=== PATIENT | male | born 2005 | race Caucasian/White ===

== ENCOUNTER 2024-11-05 18:39 | Emergency (ER) | payer BC, MEDICAID | END 2024-11-05 20:40 | disposition home or self-care (01) | LOC: VM.ED 18:39 | DX: S40.021A Contusion of right upper arm, initial encounter (principal); Z91.048 Other nonmedicinal substance allergy status; W00.0XXA Fall on same level due to ice and snow, initial encounter | CPT/HCPCS: 73030-RT; 73090-RT; 73100-RT; 99283 ==

== ENCOUNTER 2025-04-14 19:34 | Emergency (ER) | payer BC, MEDICAID ==
[2025-04-14] MEDS ORDERED: levETIRAcetam 500 MG/5 ML SDV IVPUSH ONE (20:17)
== END 2025-04-14 20:20 | disposition home or self-care (01) ==
LOC: VM.ED 19:34
DX: H92.02 Otalgia, left ear (principal); Z91.048 Other nonmedicinal substance allergy status
CPT/HCPCS: 99283